=== PATIENT | female | born 1980 | race Caucasian/White ===

== ENCOUNTER 2016-05-27 22:13 | Emergency (ER) | payer SELFPAY ==
[~2016-05-27] VITALS: Ht 162.6 cm; Wt 84.7 kg
[2016-05-27 23:20] LABS: HEMOGLOBIN 14.3 g/dL (11.7-16.4)
[2016-05-27 23:33] LABS: ASPARTATE AMINO TRANSFERASE 9 U/L (15-37); BLOOD UREA NITROGEN 13 mg/dL (7-18)
[2016-05-28 00:07] LABS: HCG UR OBC PASS
[2016-05-28 01:00] VITALS: BP 111/71
== END 2016-05-28 01:07 | disposition home or self-care (01) ==
LOC: ED 23:59
DX: N83.201 Unspecified ovarian cyst, right side (principal); R10.32 Left lower quadrant pain; R10.31 Right lower quadrant pain
CPT/HCPCS: 36415; 76830; 80053; 81001; 81025; 83690; 85025; 99285

== ENCOUNTER 2018-07-05 09:28 | Emergency (ER) | payer OTHER ==
[~2018-07-05] VITALS: Ht 162.6 cm; Wt 83.4 kg
--- NOTE | 2018-07-05 09:47 | NUR ---
[facility]
--- NOTE | 2018-07-05 09:51 | NUR ---
PT C/O UPPER RIGHT QUADRANT ABD PAIN. AMBULATES TO ROOM WITH A STEADY GAIT. PT IN GOWN ON BED. CALL LIGHT IN REACH AND EDUCATED ON NEED FOR A UA FOR ABD PAIN.
[2018-07-05] MEDS ORDERED: ONDANSETRON 2MG/ML, 2ML ONE (10:24)
[2018-07-05] MEDS ORDERED: FAMOTIDINE 20 MG/2 ML ONE (10:25)
[2018-07-05] MEDS ORDERED: MORPHINE SULFATE 4 MG/ML, 1ML ONE (10:25)
[2018-07-05] MEDS ORDERED: MORPHINE SULFATE 4 MG/ML, 1ML IVPush PRN (10:30)
[2018-07-05] MEDS ORDERED: ONDANSETRON 2MG/ML, 2ML IVPush ONE (10:30)
[2018-07-05] MEDS ORDERED: FAMOTIDINE 20 MG/2 ML IVP ONE (10:30)
[2018-07-05] MEDS ORDERED: SODIUM CHLORIDE FLUSH 10ML SYR IVF ONE (10:30)
[2018-07-05 10:42] LABS: BASOPHILS # (AUTO) 0.03 x10^3/uL (0-0.1); BASOPHILS % (AUTO) 0 % (0-1); EOSINOPHILS # (AUTO) 0.01 x10^3/uL (0-0.4); EOSINOPHILS % (AUTO) 0 % (1-7); LYMPHOCYTES # (AUTO) 1.02 x10^3/uL (1-3.4); LYMPHOCYTES % (AUTO) 12 % (22-44); MD NO; MEAN CORPUSCULAR HEMOGLOBIN 29.5 pg (27.0-34.8); MEAN CORPUSCULAR HGB CONC 32.8 g/dL (32.4-35.8); MEAN CORPUSCULAR VOLUME 89.8 fL (80-100); MEAN PLATELET VOLUME 7.5 fL (7.4-10.4); MONOCYTES # (AUTO) 0.25 x10^3/uL (0.2-0.8); MONOCYTES % (AUTO) 3 % (2-9); NEUTROPHILS # (AUTO) 7.49 x10^3/uL (1.8-6.8); NEUTROPHILS % (AUTO) 85 % (42-75); PLATELET COUNT 215 x10^3/uL (130-400); RED BLOOD COUNT 4.91 x10^6/uL (3.82-5.3); RED CELL DISTRIBUTION WIDTH 13.5 % (9.6-15.2)
[2018-07-05 10:49] LABS: ALANINE AMINOTRANSFERASE 16 U/L (12-78); ALBUMIN 3.7 g/dL (3.4-5.0); ANION GAP 5 mmol/L (5-15); CALCIUM 8.7 mg/dL (8.5-10.1); CHLORIDE 110 mmol/L (98-107); CREATININE 0.72 mg/dL (0.55-1.02)
[2018-07-05 10:50] LABS: BILIRUBIN,TOTAL 0.4 mg/dL (0.2-1.0); TOTAL PROTEIN 7.5 g/dL (6.4-8.2)
[2018-07-05 10:54] LABS: ALKALINE PHOSPHATASE 75 U/L (45-117)
--- NOTE | 2018-07-05 11:00 | NUR ---
US IN ROOM NOW.
[2018-07-05 11:34] VITALS: BP 115/68
== END 2018-07-05 12:02 | disposition home or self-care (01) ==
LOC: ED 10:04
DX: K80.20 Calculus of gallbladder without cholecystitis without obstruction (principal)
CPT/HCPCS: 36415; 76700; 80053; 83690; 84703; 85025; 96374; 96375; 99284; J2405; J3490